=== PATIENT | male | born 1955 | race Caucasian/White ===

== ENCOUNTER 2020-03-29 13:19 | Outpatient (REF) | payer MEDICARE, MEDICAID, SELFPAY | END 2020-03-29 13:20 | disposition home or self-care (01) | LOC: HO.HAP 13:19 | PROVIDERS: Visit Provider Family Medicine | DX: Z46.1 Encounter for fitting and adjustment of hearing aid (principal) | CPT/HCPCS: 92593; 99499; V5266 ==

== ENCOUNTER 2020-04-07 08:10 | Outpatient (REF) | payer MEDICARE, MEDICAID, SELFPAY | END 2020-04-07 08:11 | disposition home or self-care (01) | LOC: HO.HAP 08:10 | PROVIDERS: PCP Family Medicine; Referring Provider Family Medicine; Visit Provider Family Medicine | DX: Z46.1 Encounter for fitting and adjustment of hearing aid (principal) | CPT/HCPCS: V5014 ==

== ENCOUNTER 2020-06-20 08:58 | Outpatient (REF) | payer MEDICARE, MEDICAID, SELFPAY ==
--- NOTE | 2020-06-22 09:55 | MHC.AU.P13 ---
Adult Audiological Evaluation Date of Visit: 06/20/20 Senior Accountant Used: Not Applicable Reason for Appointment: Audiologic re-evaluation to determine possible change in hearing ability. Inderjit notes he needs to use the volume of the hearing aids to reduce the loudness every time he uses the aids. Previous Hearing Test Results: 05/06/2019 [facility] Normal hearing thresholds at 250 and 500 Hz dropping to an asymmetric moderately-severe high frequency sensorineural hearing loss with the left ear being poorer than the right. Speech understanding was 96% for the right ear and 84% for the left. Ear History: Family History of Hearing Loss?: Yes Bothersome Tinnitus/Ringing/Noises in Ears: Both Ears History of occupational noise exposure?: Yes Medical History: Medical History: High Blood Pressure Medical History: No changes in medical history reported Allergies: No changes to medications reported Medication List: Not available for review Hearing Instrument History- Right Ear: Neck Skewer: Nimbic (formerly Physware) Model: GotGame0M Mark ForgedE Serial Number: [id number] Battery Size: 312 Repair Warranty: 05/02/2020 Dispensed By: [facility] Date of Fittin03/24/2015 Hearing Instrument History- Left Ear: Neck Skewer: Nimbic (formerly Physware) Model: GotGame0M BTE Serial Number: [id number] Battery Size: 312 Warranty: 10/03/2020 Dispensed By: [facility] Date of Fittin03/24/2015 Otoscopy: Right Ear: Unremarkable Left Ear: Unremarkable Tympanometry: Right Ear: Not performed at today's visit Left Ear: Not performed at today's visit Hearing Evaluation: Transducer(s) Used: Insert Earphones Bone Conduction Method: Conventional Audiometry Stimuli Used: Pure Tones Right Ear: Description of Hearing: Normal hearing thresholds at 250-750 Hz dropping to a moderately-severe high frequency sensorineural hearing loss Left Ear: Description of Hearing: Normal hearing thresholds at 250 and 500 Hz dropping to a moderately-severe sensorineural high frequency hearing loss. Compared to the right ear, left ear thresholds are 15-30 dB poorer at 750-2000 Hz Speech Recognition Threshold (SRT): Method Used: Monitored Live Voice Stimuli Used: Spondee Words Right Ear: 15 dB HL Left Ear: B HL Word Discrimination: Method: Recorded Lists Word Lists Used: NU-6 Right Ear: 88% at 60 dB HL Left Ear: 92% at 70 dB HL Comparison: Compared to the most recent evaluation: Hearing is stable. Recommendations: Recommendations: Audiological re-evaluation in one year. Recommendations (Other): Hearing aids were cleaned and reprogrammed for Edward's comfort. Diagnosis: Primary Diagnosis: H90.3 Bilateral Sensorineural Hearing Loss Services Performed: Services Performed: Comprehensive Audiological Evaluation (CPT 22198) Signature: Provider: Lillian Kahn, NAMRATA-A
== END 2020-06-20 08:59 | disposition home or self-care (01) ==
LOC: HO.SH 08:58
PROVIDERS: Visit Provider Family Medicine
DX: H90.3 Sensorineural hearing loss, bilateral (principal)
CPT/HCPCS: 92557

== ENCOUNTER 2020-08-08 11:20 | Outpatient (REF) | payer MEDICARE, MEDICAID, SELFPAY | END 2020-08-08 11:21 | disposition home or self-care (01) | LOC: HO.HAP 11:20 | PROVIDERS: Visit Provider Family Medicine | DX: Z46.1 Encounter for fitting and adjustment of hearing aid (principal) | CPT/HCPCS: V5266 ==

== ENCOUNTER 2020-12-22 08:31 | Outpatient (REF) | payer MEDICARE, MEDICAID, SELFPAY | END 2020-12-22 08:32 | disposition home or self-care (01) | LOC: HO.HAP 08:31 | PROVIDERS: Visit Provider Family Medicine | DX: Z46.1 Encounter for fitting and adjustment of hearing aid (principal); H90.3 Sensorineural hearing loss, bilateral | CPT/HCPCS: V5266 ==

== ENCOUNTER 2021-05-23 07:58 | Outpatient (REF) | payer MEDICARE, MEDICAID, SELFPAY ==
--- NOTE | 2021-05-23 09:46 | MHC.AU.HAS ---
Hearing Aid Evaluation Date of Visit: 05/23/21 Core Shaper Used: Not Applicable Historical Information: Description of Hearing: Normal hearing thresholds at 250 and 500 Hz, dropping to an asymmetrical moderately-severe high frequency sensorineural hearing loss with the left ear poorer at 750-2000 Hz Current personal amplification information, if applicable: AIDS RECEIVED IN 2014 REPORTED LOST 05/23/2021. Needs replacements Hearing Aid Prescription: Based on the individual?s shared listening needs, communication environments, dexterity, desire for connectivity, and personal preferences, the following prescription for amplification has been made: Right ear: Bioprocessing Manufacturing Technician: Phonak Model: Popcutseo P 70 13-T Battery Size: 13 Color: Silver [place] Horticultural Farmer: #2 Medium Type of Dome: Open Left ear: Left ear prescription to be same as Right Hearing Aid above: Bioprocessing Manufacturing Technician: Phonak Model: Audeo P 70 13T Battery Size: 13 Color: [place] Horticultural Farmer: #2 Medium Type of Dome: Open Plan of Care: Patient wishes to purchase hearing aids as prescribed Action Taken/Action Needed: Medical Clearance to be requested from PCP/ENT Hearing Instrument Fitting to be scheduled when materials arrive Primary Diagnosis: H90.3 Bilateral Sensorineural Hearing Loss Signature: Provider: Lillian Kahn, CCC-A
--- NOTE | 2021-05-23 09:49 | MHC.AU.MED ---
Medical Clearance for Hearing Instrumentation Date: 05/23/21 Patient Name: Inderjit Downing Date of : 1955 Primary Care Provider: Referring Provider: Douglas Fuentes MD We have seen your patient on 05/23/21 and have determined that they are a candidate for amplification (See accompanying report). Specifically, they would benefit from: Hearing aid use in both ears There is a statute that addresses Medical Evaluation Requirements prior to fitting a patient with a hearing aid. According to [place] statute 265 CMR:6.03(1), (a) General. Except as provided in 265 CMR 6.03(1)(b), a senior analyst programmer shall not sell a hearing aid unless the prospective user has presented to the senior analyst programmer a written statement signed by a licensed physician that states that the patient's hearing loss has been medically evaluated and the patient may be considered a candidate for a hearing aid. The medical evaluation must have taken place within the preceding six months. Please note: Due to the [place] Statute referenced above, we cannot accept a signature other than that of a licensed physician. TRUCK FARMER and PA signatures cannot be accepted. I am in agreement with the above recommendation. There is no medical contraindication for hearing instrumentation. Physician Signature Date Physician Name (Printed)
--- NOTE | 2021-05-25 13:05 | MHC.AU.AHA ---
Adult Audiological Evaluation Date of Visit: 05/23/21 Food Service Manager Used: Not Applicable Reason for Appointment: Audiologic re-evaluation. Inderjit reports he recently lost both hearing aids and need replacements. Previous Hearing Test Results: 06/20/2020 [facility] Normal hearing thresholds at 250 and 500 Hz, dropping to an asymmetric moderately-severe high frequency sensorineural hearing loss with the left ear being poorer than the right by 15-30 dB HL at 750-2000 Hz. Speech understanding was 88% for the right ear at 60 dB HL and 92% for the left ear at 70 dB HL Ear History: History of occupational noise exposure?: Yes Medical History: Medical History: High Blood Pressure Medical History: Since last tested, Inderjit notes he experienced positional vertigo which improved with Vestibular Rehabilitation Medication List: None reported Hearing Instrument History- Right Ear: REPORTED LOST 05/23/2021 Scrip Clerk: Phonak Model: Audeo P 70 13-T Serial Number: [id number] Dispensed By: [facility] Date of Fittin03/24/2015 Hearing Instrument History- Left Ear: REPORTED LOST 05/23/2021 Scrip Clerk: Phonak Model: Audeo P 70 13T Serial Number: [id number] Dispensed By: [facility] Date of Fittin03/24/2015 Otoscopy: Right Ear: Unremarkable Left Ear: Unremarkable Tympanometry: Not performed at today's visit as all previous testing has indicated bilateral normal middle ear function Hearing Evaluation: Transducer(s) Used: Insert Earphones Bone Conduction Method: Conventional Audiometry Stimuli Used: Pure Tones Right Ear: Description of Hearing: Normal hearing thresholds at 250 and 500 Hz, dropping to a moderately-severe high frequency sensorineural hearing loss Left Ear: Description of Hearing: Normal hearing thresholds at 250 and 500 Hz, dropping to a moderately-severe high frequency sensorineural hearing loss. Hearing levels at 750-2000 Hz are 15-30 dB poorer compared to the right ear. Speech Recognition Threshold (SRT): Method Used: Not performed at today's visit. Word Discrimination: Method: Recorded Speech Word Lists Used: NU-6 Right Ear: 100% at 75 dB HL Left Ear: 88% at 75 dB HL Most Comfortable Level (MCL): Right Ear: 75 dB HL Left Ear: 75 dB HL Comparison: Compared to the most recent evaluation: Hearing is stable. Recommendations: Trial with new amplification is recommended. Medical clearance from a physician is required before fitting. Hearing Aid Fitting will be scheduled when all materials arrive. Audiological re-evaluation in one year. Will send a reminder card Diagnosis: Primary Diagnosis: H90.3 Bilateral Sensorineural Hearing Loss Services Performed: Comprehensive Audiological Evaluation (CPT 56313) Signature: Provider: Lillian Kahn, NAMRATA-A
== END 2021-05-23 07:59 | disposition home or self-care (01) ==
LOC: HO.SH 07:58
PROVIDERS: Visit Provider Internal Medicine
DX: Z01.10 Encounter for examination of ears and hearing without abnormal findings (principal); H90.3 Sensorineural hearing loss, bilateral; I10 Essential (primary) hypertension
CPT/HCPCS: 92557; 92591

== ENCOUNTER 2021-07-06 10:29 | Outpatient (REF) | payer MEDICARE, MEDICAID, SELFPAY | END 2021-07-06 10:30 | disposition home or self-care (01) | LOC: HO.HAP 10:29 | PROVIDERS: Visit Provider Internal Medicine | DX: Z46.1 Encounter for fitting and adjustment of hearing aid (principal); H90.3 Sensorineural hearing loss, bilateral | CPT/HCPCS: V5011; V5020; V5160; V5261; V5266 ==

== ENCOUNTER 2021-07-28 09:55 | Outpatient (REF) | payer MEDICARE, MEDICAID, SELFPAY | END 2021-07-28 09:56 | disposition home or self-care (01) | LOC: HO.HAP 09:55 | PROVIDERS: Visit Provider Family Medicine | DX: Z13.89 Encounter for screening for other disorder (principal) ==

== ENCOUNTER 2021-11-29 12:07 | Outpatient (REF) | payer MEDICARE, MEDICAID, SELFPAY | END 2021-11-29 12:08 | disposition home or self-care (01) | LOC: HO.HAP 12:07 | PROVIDERS: Visit Provider Family Medicine | DX: Z46.1 Encounter for fitting and adjustment of hearing aid (principal); H90.3 Sensorineural hearing loss, bilateral | CPT/HCPCS: V5266 ==

== ENCOUNTER 2022-04-18 08:39 | Outpatient (REF) | payer MEDICARE, MEDICAID, SELFPAY | END 2022-04-18 08:40 | disposition home or self-care (01) | LOC: HO.HAP 08:39 | PROVIDERS: Visit Provider Family Medicine | DX: Z46.1 Encounter for fitting and adjustment of hearing aid (principal); H90.3 Sensorineural hearing loss, bilateral | CPT/HCPCS: V5266 ==

== ENCOUNTER 2022-04-23 14:02 | Outpatient (REF) | payer MEDICARE, MEDICAID, SELFPAY ==
--- NOTE | 2022-04-23 14:48 | MHC.AU.HFU ---
Hearing Instrument Follow-Up- Binaural Date of Visit: 04/23/22 Right Ear: Phonak Audeo P70-13T, #[id number], [place] Repair Warranty: 09/26/2024 Loss and Damage Warranty: 09/26/2024 Service Plan: 07/06/2022 Battery Size: 13 Stock Dealer: 2M Type of Dome: Small Vented Dome Type of Wax Guard: CeruShield Dispensed By: [facility] Date of Fittin07/06/2021 Left Ear: Phonak Audeo P70-13T, #[id number], [place] Repair Warranty: 09/26/2024 Loss and Damage Warranty: 09/26/2024 Service Plan: 07/06/2022 Battery Size: 13 Color: [place] Stock Dealer: 2M Type of Dome:Small Vented Dome Type of Wax Guard: CeruShield Dispensed By: [facility] Date of Fittin07/06/2021 Follow-Up Summary: Patient previously called to inquire about the battery life of his hearing aids. They have been consistently lasting at least 7 days. Recently, they have suddenly started to last only 5 or less. He has not had any changes in amount of phone streaming or overall daily usage. It was suggested that they be sent for repair. Patient arrived today to drop the hearing aids off. He was provided with a pair of loaner instruments (Phonak Audeo P70-13T [id number], [id number]). The loaner instruments were paired to his phone and to the elie. Recommendations: Patient will be contacted when materials have arrived. When the hearing aids return, he will need an appointment to re-pair them to his phone and elie, as well as return the loaners. Diagnosis Code(s): Primary Diagnosis: H90.3 Bilateral Sensorineural Hearing Loss Signature: Viridiana Ruth, [facility]
== END 2022-04-23 14:03 | disposition home or self-care (01) ==
LOC: HO.HAP 14:02
PROVIDERS: Visit Provider Family Medicine
DX: Z13.89 Encounter for screening for other disorder (principal)

== ENCOUNTER 2022-05-04 09:28 | Outpatient (REF) | payer MEDICARE, MEDICAID, SELFPAY ==
--- NOTE | 2022-05-04 09:52 | MHC.AU.HA3 ---
Hearing Instrument Follow-Up- Binaural Date of Visit: 05/04/22 Right Ear: Samuel, , Color, Serial Number: Leyla Rivas P70-13T SN: [id number] Color: [place] Last Greaser Repair Warranty: 09/26/2024 Last Greaser Loss and Damage Warranty: 09/26/2024 [facility] Plan: 07/06/2022 Battery Size: 13 Military Science Teacher/Slim Tube: 2M Earmold/Dome/CShell/SlimTip:Small Vented Dome with retention tail Type of Wax Guard: CeruShield Dispensed By: [facility] Date of Fittin07/06/2021 Left Ear: Samuel, , Color, Serial Number: Leyla Rivas P70-13T SN: [id number] Color: [place] Last Greaser Repair Warranty: 09/26/2024 Last Greaser Loss and Damage Warranty: 09/26/2024 [facility] Service Plan: 07/06/2022 Battery Size: 13 Military Science Teacher/Slim Tube: 2M Earmold/Dome/CShell/SlimTip: Small Vented Dome with retention tail Type of Wax Guard: CeruShield Dispensed By: [facility] Date of Fittin07/06/2021 Follow-Up Summary: Inderjit picked up repaired hearing aids and returned loaners. He reported that the batteries in the loaners also only lasted about 4 days. Advised waiting 2-3 minutes after removing sticker from the battery before putting it in the hearing aids. Also possible that Inderjit has a bad batch of batteries. Gave a couple new batteries from different package to try. Recommendations: Hearing instrument maintenance in 6 months, or sooner if needed. Please contact our clinic with any questions or concerns. Patient will call if problems persist. Diagnosis Code(s): Primary Diagnosis: H90.3 Bilateral Sensorineural Hearing Loss Signature: Provider: Viridiana Sparks, [facility]
== END 2022-05-04 09:29 | disposition home or self-care (01) ==
LOC: HO.HAP 09:28
PROVIDERS: Visit Provider Family Medicine
DX: Z13.89 Encounter for screening for other disorder (principal)

== ENCOUNTER 2022-08-10 08:55 | Outpatient (REF) | payer MEDICARE, MEDICAID, SELFPAY ==
--- NOTE | 2022-08-10 13:25 | MHC.AU.HFU ---
Hearing Instrument Follow-Up- Binaural Date of Visit: 08/10/22 Right Ear: Transfer Iron Operator: Phonak Audeo P70-13T SN: [id number] Color: [place] Repair Warranty: 09/26/2024 Loss and Damage Warranty: 09/26/2024 Service Plan: 09/26/2024 Battery Size: 13 Color: [place] Broommaker: 2M Type of Dome: Small Vented Dome with retention tail Type of Wax Guard: CeruShield Dispensed By: [facility] Date of Fittin07/06/2021 Left Ear: Transfer Iron Operator: Phonak Audeo P70-13T SN: [id number] Color: [place] Repair Warranty: 09/26/2024 Loss and Damage Warranty: 09/26/2024 Service Plan: 09/26/2024 Battery Size: 13 Color: [place] Broommaker: 2M Type of Dome: Small Vented Dome with retention tail Type of Wax Guard: CeruShield Dispensed By: [facility] Date of Fittin07/06/2021 Follow-Up Summary: Patient was seen for audiologic re-evaluation. Hearing Aid maintenance performed, cleaned microphones, receivers, contacts, and changed wax guards. Both aids amplifying clearly. Thresholds are stable so no programming changes were made today. Patient has been having trouble getting the aids to connect to the [employer] elie. Tried to go through the process of unpairing and re-pairing aids to phone and follow step provided by [employer], but it did not work. Provided patient with the [employer] phone number to get to [employer] Connectivity Support to help patient through the process. Recommendations: Hearing instrument follow-up or maintenance as needed. Please contact our clinic with any questions or concerns. Diagnosis Code(s):Primary Diagnosis: H90.3 Bilateral Sensorineural Hearing Loss Signature:Provider: Viridiana Kahn, [facility]
--- NOTE | 2022-08-10 13:28 | MHC.AU.HFU ---
Hearing Instrument Follow-Up- Binaural Date of Visit: 08/10/22 Right Ear: Director Of Quality: Phonak Audeo P70-13T SN: [id number] Color: [place] Repair Warranty: 09/26/2024 Loss and Damage Warranty: 09/26/2024 Service Plan: 07/06/2022 Battery Size: 13 Color: [place] Shiatsu Therapist: 2M Type of Dome: Small Vented Dome Type of Wax Guard: CeruShield Dispensed By: [facility] Date of Fittin07/06/2021 Left Ear: Director Of Quality: Phonak Audeo P70-13T SN: [id number] Color: [place] Repair Warranty: 09/26/2024 Loss and Damage Warranty: 09/26/2024 Service Plan: 07/06/2022 Battery Size: 13 Color: [place] Shiatsu Therapist: 2M Type of Dome: Small Vented Type of Wax Guard: CeruShield Dispensed By: [facility] Date of Fittin07/06/2021 Follow-Up Summary: Patient was seen for audiologic re-evaluation. Hearing Aid maintenance performed, cleaned microphones, receivers, contacts, and changed wax guards. Both aids amplifying clearly. Thresholds are stable so no programming changes were made today. Patient has been having trouble getting the aids to connect to the [employer] elie. Tried to go through the process of unpairing and re-pairing aids to phone and follow step provided by [employer], but it did not work. Provided patient with the [employer] phone number to get to [employer] Connectivity Support to help patient through the process. Recommendations: Hearing instrument follow-up or maintenance as needed. Please contact our clinic with any questions or concerns Diagnosis Code(s):Primary Diagnosis: H90.3 Bilateral Sensorineural Hearing Loss Services Performed:SCHULTZ Maintenance, Minor Repair (Quantity): 2 Signature:Provider: Viridiana Kahn, [facility]
== END 2022-08-10 08:56 | disposition home or self-care (01) ==
LOC: HO.SH 08:55
PROVIDERS: Visit Provider Nurse Practitioner Family
DX: Z01.118 Encounter for examination of ears and hearing with other abnormal findings (principal); H90.3 Sensorineural hearing loss, bilateral
CPT/HCPCS: 92557; 92567; 92593

== ENCOUNTER 2022-10-10 14:25 | Outpatient (REF) | payer MEDICARE, MEDICAID, SELFPAY | END 2022-10-10 14:26 | disposition home or self-care (01) | LOC: HO.HAP 14:25 | PROVIDERS: Visit Provider Family Medicine | DX: Z46.1 Encounter for fitting and adjustment of hearing aid (principal); H90.3 Sensorineural hearing loss, bilateral | CPT/HCPCS: V5266 ==

== ENCOUNTER 2024-01-23 15:42 | Outpatient (REF) | payer SELFPAY | END 2024-01-23 15:43 | disposition home or self-care (01) | LOC: HO.HAP 15:42 | PROVIDERS: Visit Provider Family Medicine | DX: Z46.1 Encounter for fitting and adjustment of hearing aid (principal); H90.3 Sensorineural hearing loss, bilateral | CPT/HCPCS: 92593; V5267 ==

== ENCOUNTER 2024-09-30 09:19 | Outpatient (REF) | payer SELFPAY | END 2024-09-30 09:20 | disposition home or self-care (01) | LOC: HO.HAP 09:19 | PROVIDERS: Visit Provider Family Medicine | DX: Z13.89 Encounter for screening for other disorder (principal) ==

== ENCOUNTER 2024-10-02 08:03 | Outpatient (REF) | payer SELFPAY | END 2024-10-02 08:04 | disposition home or self-care (01) | LOC: HO.SH 08:03 | PROVIDERS: Visit Provider Family Medicine | DX: Z01.118 Encounter for examination of ears and hearing with other abnormal findings (principal); Z46.1 Encounter for fitting and adjustment of hearing aid | CPT/HCPCS: V5299 ==

== ENCOUNTER 2025-03-20 12:24 | Emergency (ER) | payer MEDICARE, SELFPAY ==
--- NOTE | ~2025-03-20 | CT_ITS ---
CLINICAL HISTORY: head strike, injury CT head without contrast Comparison: None Findings: No intracranial mass, midline shift, hydrocephalus, or acute hemorrhage. No CT evidence of acute ischemia. Visualized paranasal sinuses and mastoid air cells reveal mild mucosal thickening involving the floors of left worse than right frontal sinuses.. Orbits unremarkable. No skull fracture Impression: 1. No acute intracranial abnormalities. This document has been electronically signed by: Charbel Palmer MD on 03/20/2025 14:01:06
--- NOTE | ~2025-03-20 | CT_ITS ---
CLINICAL HISTORY: head strike, injury CT cervical spine without contrast Comparison: None Findings: Normal limited view of the intracranial contents. Soft tissues of the neck are normal. Lung apices are normal. Normal vertebral body alignment. Sequela of ACDF C4-C6 with anterior fusion plate and incorporated intervertebral grafts are present. Hardware and vertebral alignment are good, with no CT evidence of hardware failure. No fractures or dislocations. Degenerative disc changes are present, most significant at C3-4 level.. Impression: 1. No cervical vertebral fracture or traumatic malalignment. This document has been electronically signed by: Charbel Palmer MD on 03/20/2025 14:04:36
[2025-03-20 12:29] VITALS: BP 162/88; PULSE 72; RESP 18; TEMP 36.1; O2SAT 97; BMI 28.0
--- NOTE | 2025-03-20 12:47 | ED_ITS ---
HPI - General Adult General Chief complaint: Head Injury Stated complaint: Head Lac Injury Time Seen by Provider: 03/20/25 12:47 Source: patient and family (patient's ) Mode of arrival: ambulatory Limitations: no limitations History of Present Illness ED Provider: Richa Crawford PA-C HPI narrative: Patient is a 69 year old assigned male at with a history of BPH, CKD stage 2, hearing loss with bilateral hearing aids, rosacea, and cervical spine fusion presenting to the emergency department today with a left scalp laceration. Patient states that he was on the ground, attempting to adjust a ladder, when it got away from him and hit him in the back of the head. Patient denies any loss of consciousness. Patient denies any anti-coagulation use. Patient denies any other complaints at this time. Related Data Previous Rx's ?Medication ?Instructions ?Recorded amoxicillin 875 mg-potassium 1 tab PO BID 5 days #10 t abs 03/20/25 clavulanate 125 mg tablet Allergies Allergy/AdvReac Type Severity Reaction Status Date / Time levofloxacin (From Levaquin) Allergy Intermediate Angioedema Verified 03/20/25 12:30 Review of Systems 2 Constitutional: Constitutional: Reports as per HPI Eyes: Eyes: Reports as per HPI ENT: Reports as per HPI Cardiovascular: Cardiovascular: Reports as per HPI Respiratory: Respiratory: Reports as per HPI Gastrointestinal: Gastrointestinal: Reports as per HPI Genitourinary: Genitourinary: Reports as per HPI Musculoskeletal: Musculoskeletal: Reports as per HPI Integumentary/Breasts: Skin/Breast: Reports as per HPI Neurologic: Reports as per HPI Psychiatric: Psychiatric: Reports as per HPI Endocrine: Endocrine: Reports as per HPI Hematologic/Lymphatic: Hematologic/Lymphatic: Reports as per HPI Allergic/Immunologic: Allergic/Immunologic: Reports as per HPI PMFSH Past Medical History Attestation statement: The following information was validated with the patient. (all information validated with the patient's ) Source: old records reviewed, obtained from family (patient's provided additional history and confirmed the history provided by the patient. ) and nursing notes reviewed Social History Social History Smoked in Last 30 Days: No Use of substances other than those prescribed or required for medical reasons: No Advance Directives: Yes Advance Directives Information Provided: No Advance Directives on File: No Do you have a plan to hurt others: No Plan Physical Exam ED Vital Signs: Vital Signs - 24 hr 03/20/25 12:29 03/20/25 13:38 Temperature 97.0 F 98.4 F Pulse Rate 72 58 Respiratory Rate 18 16 Blood Pressure 162/88 H 125/65 Pulse Oximetry 97 97 Oxygen Delivery Method Room Air Room Air BMI result Body Mass Index 28.0 Const General: cooperative, no acute distress, alert and awake Nutritional Appearance: well nourished Orientation/consciousness: patient oriented x3 HENMT Other: Ears: hearing grossly normal bilaterally and external ears normal General nose exam: Normal external nose present, no nasal discharge noted and no epistaxis Face and sinus: Yes normal facial exam, No abrasion and No laceration Mouth: Normal oral and palatal mucosa present, no drooling and no muffled voice Eyes General: appearance normal, both eyes and all related structures Periorbital: periorbital findings normal Eyelids: Yes eyelids normal Conjunctivae: conjunctivae normal Pupils: Equal, round and reactive pupils present EOM: EOMs intact bilaterally Neck Neck: Yes normal visual inspection and Yes full ROM Resp Effort & Inspection: normal respiratory effort and able to speak in complete sentences Neuro General: patient oriented x3, moves all extremities and CN's II-XI intact bilaterally Cranial nerves: Yes Equal, round and reactive pupils present Cognition (Neuro): normal cognition Extrem General: Yes normal to inspection, Yes full ROM and Yes capillary refill normal Psych Appearance: grossly normal Mental Status: mental status grossly normal Affect: normal affect Attitude: cooperative Thought process: Normal thought process present Thought content: Normal thought content present Insight: Good insight present (Psych) Medications Administered Discontinued Medications Generic Name Dose Route Start Last Admin Trade Name Freq PRN Reason Stop Dose Admin Diphtheria/Tetanus/Acell Pertussis 0.5 ml 03/20/25 12:48 03/20/25 13:42 Diphth,Pertus(Acell),Tet Adult 0.5 Ml Syringe IM 03/20/25 12:49 0.5 ml .ONCE ONE Administration Procedures Laceration Left posterior scalp laceration: Site: scalp Side (If applicable): left Size (cm): 3 Description: linear Depth: simple, single layer Pre-repair: wound explored, irrigated extensively and deep structures intact Skin layer closed with: ruchi Number of closing items:: 3 Technique: ruchi Medical Decision Making Medical Decision Making MDM Narrative: Patient is a 69 year old assigned male at with a history of BPH, CKD stage 2, hearing loss with bilateral hearing aids, rosacea, and cervical spine fusion presenting to the emergency department today with a left scalp laceration. Patient's physical exam was as noted in the physical exam portion of this note. Patient's CT head and c-spine showed no acute process. I explained my physical exam findings as well as all test results to the patient and the patient's . I answered all questions asked by the patient and the patient's . Patient's wound was well approximately with 3 ruchi, without incident. Patient was brought up to date on his tetanus status. I stressed the importance of the patient taking his medication as directed (either prescribed or as the over the counter packaging recommends). I stressed the importance of the patient following up with his primary care provider. I stressed the importance of the patient returning to the emergency department immediately if he were to develop any dizziness, shortness of breath, difficulty breathing, chest pain, blurry vision, loss of vision, nausea, vomiting, abdominal pain, fever, chills, back pain, or any other complaints. Patient and the patient's verbalized agreement and understanding with this treatment plan and discharge. Differential Diagnosis Differential Diagnoses: The differential diagnosis associated with the presentation includes Scalp laceration Head trauma Intracranial hemorrhage Cervical strain Cervical sprain Admission/Observation Consideration of admission/observation: Escalation of care including admission/observation considered Patient would have been admitted to the hospital had his work up had any findings where hospital admission was appropriate and his clinical presentation warranted hospital admission. Independent Interpretation I performed an independent interpretation of an: CT Scan Interpretation: My interpretation is in agreement with the radiologist's impression of these imaging studies. L Report Number: [id number]: Total DLP = 0.00 mGy-cm Reason for Exam: head strike, injury CLINICAL HISTORY: head strike, injury CT cervical spine without contrast Comparison: None Findings: Normal limited view of the intracranial contents. Soft tissues of the neck are normal. Lung apices are normal. Normal vertebral body alignment. Sequela of ACDF C4-C6 with anterior fusion plate and incorporated intervertebral grafts are present. Hardware and vertebral alignment are good, with no CT evidence of hardware failure. No fractures or dislocations. Degenerative disc changes are present, most significant at C3-4 level.. Impression: 1. No cervical vertebral fracture or traumatic malalignment. This document has been electronically signed by: Charbel Palmer MD on 03/20/2025 14:04:36 Dictated By: Charbel Palmer MD Signed By: Electronically signed by Charbel Palmer MD 03/20/25 1406 Reason for Exam: head strike, injury CLINICAL HISTORY: head strike, injury CT head without contrast Comparison: None Findings: No intracranial mass, midline shift, hydrocephalus, or acute hemorrhage. No CT evidence of acute ischemia. Visualized paranasal sinuses and mastoid air cells reveal mild mucosal thickening involving the floors of left worse than right frontal sinuses.. Orbits unremarkable. No skull fracture Impression: 1. No acute intracranial abnormalities. This document has been electronically signed by: Charbel Palmer MD on 03/20/2025 14:01:06 Dictated By: Charbel Palmer MD Signed By: Electronically signed by Charbel Palmer MD 03/20/25 2274 Radiology Impression Discussion of test interpretation with radiology: I have reviewed the radiologist's reading. Independent Historian Clinical information obtained from an independent historian. History obtained from or confirmed by: Spouse (patient's provided additional history and confirmed the history provided by the patient. ) External Record Review External record reviewed: Primary care record (reviewed last primary care note from [facility] on 09/30/2023) Prescription Management I considered prescription management with: Antibiotic (patient prescribed a prophylactic antibiotic given the mechanism of injury) Discharge Plan Discharge Clinical Impression: Laceration of scalp Patient Disposition: Home, Self-Care Instructions: Laceration (DC), Staple Care (ED) Additional Instructions: Your CT of the head and c-spine showed no evidence of an EMERGENT process. You got 3 ruchi placed in your scalp laceration. Have these removed in 7-10 days. Do NOT soak the affected area. Avoid all public bodies of water including pools, doss, lakes, streams, etc. Take your prophylactic antibiotic as directed. IF you are prescribed home medications and/or you are taking over the counter medications at home - it is very important you continue to do so as prescribed / directed unless told otherwise. Follow up with your primary care provider. Return to the emergency department immediately if your symptoms worsen or if you develop any numbness, tingling, dizziness, shortness of breath, difficulty breathing, chest pain, blurry vision, loss of vision, nausea, vomiting, abdominal pain, fever, chills, back pain, or any other complaints. Please see the information below about our Patient Portal. If you are not yet enrolled in the [facility] Patient Portal, you will receive an enrollment email invitation following your visit to any [facility] setting. You may also self-enroll in the Patient Portal by visiting our website: [email or web address] The following information is required to access the Patient Portal: - Your [facility] Medical Record Number - Your personal home email address (must match what is in your electronic medical record, Registration staff can assist with this) - Name - Date of Capabilities of the Patient Portal: - Message some providers - View upcoming appointments - Access your health summary, medical history, and visit history - View current conditions and allergies - View procedure and lab results - View your medications, including guidelines, side effects, and precautions - Complete pre-appointment questionnaires requested by your provider - Ready summary reports of your office visits and procedures To access the Patient Portal Mobile Ne, follow these directions: - Search [employer] in the Ne Store or Get [employer] Store - Download the Ne - Search for [facility] - Enter your login/password Prescriptions: New amoxicillin-pot clavulanate 875-125 mg tablet 1 tab PO BID 5 Days Qty: 10 0RF Referrals: Betito Aguayo MD [Primary Care Provider, Internal Medicine] Interventions: ED Discharge Assessment Last Done: 03/20/25 14:50 Print Language: Mauritanian
--- OUTSIDE RECORDS SUMMARY | 2025-03-20 13:08 | XMS_ITS | Clinical Summary ---
Author Organization [facility] Address [facility] Andre Phillipe [address] [address] Phone Care Team Providers Care Industry Analyst Name Role Phone Betito Aguayo MD Primary Care Provider Allergies Active Allergy Reactions Criticality Noted Date Comments Levofloxacin Swelling High 10/02/2018 Medications erythromycin (ROMYCIN) ophthalmic ointmentIndicat ions:Hordeolum externum of left upper eyelid Place 0.5 inches into the left eye nightly at bedtime. 3.5 g 5 Active tobramycin-dexA METHasone (TOBRADEX) ophthalmic suspension INSTILL 1 DROP IN RIGHT EYE THREE TIMES A DAY X 1 WEEK THEN DAILY X 1 WEEK 5 Active hydrocortisone 2.5 % ointment APPLY TO AFFECTED AREAS ON FACE 1-2 TIMES DAILY FOR 1 WEEK, BREAK 1 WEEK, REPEAT NEEDED ITCHING 5 Active ketoconazole 2 % cream APPLY TO THE AFFECTED FLAKY AREAS ON THE FACE TWICE DAILY UNTIL RESOLVED THEN WEEKLY FOR MAINTENANCE 5 Active ketoconazole (NIZORAL) 2 % shampoo USE DAILY A FACE WASH 5 Active Active Problems Problem Noted Date Diagnosed Date Mixed hyperlipidemia 11/07/2023 Assessment & Plan (11/07/2023 7:07 PM EDT): Patient reports that his cholesterol numbers have been improving. Not on a statin at baseline. Defer to outpatient management. Would recommend low-fat, lactose-free diet when diet is advanced. Osteoarthritis 11/07/2023 Overview (11/07/2023): multiple knee surgeries bilateral Assessment & Plan (11/07/2023 7:07 PM EDT): All available for mild pain if needed. No acute osteoarthritis issues. Partial intestinal obstruction, unspecified caus e 11/07/2023 Assessment & Plan (11/07/2023 7:06 PM EDT): Patient presenting with nausea, vomiting, abdominal pain and poor oral intake, with imaging suggestive of a partial bowel obstruction. Case was discussed by Dr. Baptiste with the ED provider. Clinically relatively comfortable. Mild abdominal pain. Nausea improved. Conservative management expected. -Normal surgery consult in the morning -Diet advanced to clear liquids as tolerated -IV fluid support overnight with LR at 100 cc/h -Analgesia available with Tylenol if needed. Doses of Toradol scheduled tonight. At this point I feel that opioids are not needed for pain and would likely worsen his bowel obstruction. Holding off on opioid orders for now. -Emetic available if needed -Encourage mobility -SCDs for DVT prophylaxis. I have held off on Lovenox tonight while I am giving scheduled Toradol. Encounters Date Type Department Care Team Description 03/11/2025 Telephone [facility] [address] [place] [id number] Betito Aguayo MD Referral 02/25/2025 3:30 PM EDT Office Visit [facility] [address] [place] [address] [place] [id number] Jefferson Bermudez MD Primary osteoarthritis of both knees (Primary Dx) 02/23/2025 8:30 AM EDT - 02/23/2025 11:59 PM EDT Hospital Encounter [facility], X-Ray - [address] [place] [address] Jefferson Bermudez MD Discharge Disposition: Home or Self Care 02/15/2025 Orders Only [facility] [address] [place] [id number] Verona Wilder MA Primary osteoarthritis of both knees (Primary Dx) 01/05/2025 Telephone [facility] [address] [place] [address] Kylie Hammonds, MARY Results (Virtual clinical support: MRI results) 01/02/2025 3:48 PM EDT - 01/02/2025 11:59 PM EDT Hospital Encounter [address] [address] Betito Aguayo MD Discharge Disposition: Home or Self Care 12/07/2024 Procedure Pass [address] [id number] from Last 3 Months Immunizations Immunization Administration Dates Next Due DT 10/16/2000 Influenza High-Dose Quadrivalent Preservative Fr ee IM 02/14/2021 Influenza High-Dose Trivalent Preservative Free IM 02/11/2019 Influenza Quadrivalent Adjuvanted Preservative F ree IM 02/17/2023,03/09/2022 Influenza Quadrivalent MDCK Preservative Free IM 03/09/2020 Influenza Quadrivalent Preservative Free IM 10/2017,06/13/2017 Influenza Trivalent Adjuvanted Preservative free IM 03/13/2024 Influenza, Unspecified Formulation 06/06/2017 Pneumococcal conjugate PCV20 06/06/2022 Td (adult),2 Lf Tetanus Toxoid, PF, Adsorbed 06/2021 Zoster live 04/28/2014 Zoster recombinant 04/08/2023,01/22/2023 Family History Medical History Relation Comments Heart disease Father Lung disease Mother Relation Status Comments Father Mother Social History Tobacco Use Types Packs/Day Years Used Date Smoking Tobacco: Former Cigarettes Q uit: 2018 Smokeless Tobacco: Never Tobacco Cessation:Counseling Given: Not Answered Alcohol Use Standard Drinks/Week Comments Yes 0 (1 standard drink = 0.6 oz pure alcohol) oc beer or spirit on special occasions Child or Family Care Answer Date Record ed Do you have problems with on e of the following making it difficult for you to work, study, or receive health care? No 06/23/2024 Education Answer Date Recorded Are you interested in more education? Not on bj e 09/21/2022 Are you concerned about learning? Not on file 09/21/2022 No 09/21/2022 No 09/21/2022 Food Answer Date Recorded Within the past 6 months we worried whether our food would run out before we got money to buy more. Never True 06/23/2024 Within the past 6 months the food we bought just didn't last and we didn't have enough money to get more. Never True Residential Stability Answer Date Recor ded What is your housing situation today? I have ronan sing 06/23/2024 How many times have you move d in the past 12 months? Zero (I did not move) 06/23/2024 Paying for Meds Answer Date Recorded Do you have trouble paying for medicines? No 06/23/2024 Paying Utility Bills Answer Date Record ed Do you have trouble paying your heating or elect ricity bill? No 06/23/2024 Transportation Answer Date Recorded Has the lack of transportati on kept you from medical appointments or from getting medications? No 06/23/2024 Digital Access Answer Date Recorded No 06/23/2024 Yes 06/23/2024 Do you have reliable internet access at home? Ye s 06/23/2024 Do you have a device (e.g., phone, tablet, computer) with a working camera? Yes 06/23/2024 Intimate Partner Violence Answer Date R ecorded Are you denied basic needs s uch as food, clothing, or medical care? No 06/23/2024 In the past 12 months have y ou been in a relationship with a person who hurts, threatens, or tries to control you? No 06/23/2024 Are you denied basic needs s uch as food, clothing, or medical care? No 06/23/2024 In the past 12 months have y ou been in a relationship with a person who hurts, threatens, or tries to control you? 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 Not on file Not on file Last Filed Vital Signs Vital Sign Reading Time Taken Comments Blood Pressure 118/62 12/07/2024 9:42 AM EDT Pulse 59 12/07/2024 9:42 AM EDT Temperature 36.3 C (97.3 F) 12/07/2024 9:42 AM EDT Respiratory Rate 16 11/07/2023 11:28 PM EDT Oxygen Saturation 95% 12/07/2024 9:42 AM EDT Inhaled Oxygen Concentration - - Weight 93 kg (205 lb) 12/30/2024 11:40 AM EDT Height 188 cm (6' 2 ) 12/30/2024 11:40 AM EDT Body Mass Index 26.32 12/30/2024 11:40 AM EDT Plan of Treatment Upcoming Encounters Date Type Department Care Team (Late st Contact Info) Description 03/29/2025 11:00 AM EST Telemedicine - audio only [facility] [address] [place] [address] [place] [phone] Jefferson Bermudez MD [address] [place] [address] [facility] [place] [address] [email or web address] 12/13/2025 8:40 AM EDT Office Visit [facility] [address] [facility] [address] [place] [address] Betito Aguayo MD [address] [facility] [address] [place] [id number] Health Maintenance Due Date Last Done Comments SMOKING Hx and SMOKELESS TOBACCO SCREENING 1966 HEPATITIS C SCREENING 11/04/1971 COLOGUARD 1998 COLONOSCOPY 1998 COLORECTAL CANCER SCREENING 1998 FIT TEST 1998 FOBT 1998 SIGMOIDOSCOPY 1998 VIRTUAL COLONOSCOPY 1998 INFLUENZA VACCINE (#1) 2024 , 02/17/2023, 03/09/2022, Additional history exists COVID-19 VACCINE ( season) 2025 11/29/2020, 11/08/2020 DEPRESSION SCREENING 12/07/2025 12/07/2024 RSV VACCINE (1 - 1-dose 75+ series) 2028 LIPID PANEL 12/07/2029 12/07/2024 Adult Td,Tdap Booster 09/26/2031 09/25/2021 PNEUMOCOCCAL VACCINES (50+ years) Completed 06/06/2022 ZOSTER VACCINES Completed 04/08/2023, 12/26, 04/28/2014 ABDOMINAL AORTIC ANEURYSM (AAA) SCREENING Completed 11/07/2023 HEPATITIS A VACCINES Aged Out No long er eligible based on patient's age to complete this topic HIB VACCINES Aged Out No longer eligi ble based on patient's age to complete this topic MENINGOCOCCAL VACCINES (ACWY) Aged Out No longer eligible based on patient's age to complete this topic MENINGOCOCCAL VACCINES (B) Aged Out N o longer eligible based on patient's age to complete this topic Medical Devices Not on file Procedures Procedure Name Priority Date/Time Associated Diagnosis Comments XR KNEE 3 VIEW (BILATERAL) Routine 02/23/2025 8:56 AM EDT Primary osteoarthritis of both knees MRI CERVICAL SPINE (NEURO) FOCUS WITHOUT CONTRAST Routine 01/02/2025 4:47 PM EDT Cervical radiculopathy LIPID PANEL Routine 12/07/2024 11:01 AM EDT Mixed hyperlipidemia CT ABDOMEN/PELVIS WITH CONTRAST Routine 11/07/2023 3:17 PM EDT from Last 3 Months or Most Recently Relevant to Health Maintenance Results * XR KNEE 3 VIEW (BILATERAL) (02/23/2025 8:56 AM EDT) Anatomical Region Laterality Modality Knee Bilateral, Knee Right, Knee Left Computed Radiography 02/23/2025 1:32 PM EDT Impressions 02/23/2025 1:33 PM EDT Bilateral knee osteoarthritis. There is at least mild medial compartment space narrowing bilaterally, slightly worse on the left and mild spurring in all compartments bilaterally. No evidence of acute, displaced fracture, dislocation, or significant joint effusion. Mild peripheral vascular calcification. Narrative 02/23/2025 1:33 PM EDT XR KNEE 3 VIEW (BILATERAL) Referring clinician's provided indication for this examination in [facility]: Osteoarthritis COMPARISON: XR KNEE 4 OR MORE VIEWS (RIGHT) Procedure Note Matt Bar MD - 02/23/2025 XR KNEE 3 VIEW (BILATERAL) Referring clinician's provided indication for this examination in Epic:Osteoarthritis COMPARISON: XR KNEE 4 OR MORE VIEWS (RIGHT) IMPRESSION: Bilateral knee osteoarthritis. There is at least mild medial compartmentspace narrowing bilaterally, slightly worse on the left and mild spurringin all compartments bilaterally. No evidence of acute, displaced fracture,dislocation, or significant joint effusion. Mild peripheral vascularcalcification. Jefferson Bermudez MD IMG XR LOWER EXTREMITY Final Result * MRI CERVICAL SPINE (NEURO) FOCUS WITHOUT CONTRAST (01/02/2025 4:47 PM EDT) Anatomical Region Laterality Modality C-spine Magnetic Resonan ce 01/05/2025 12:1 2 PM EDT Impressions 01/05/2025 12:23 PM EDT Status post anterior cervical fusion from C4 to C6. At C3/4 there is endplate marrow edema, disc ridge complex and superimposed central disc extrusion which in conjunction with facet and uncovertebral arthrosis results in moderate spinal canal narrowing, bilateral foraminal narrowing and ventral cord compression. No cord edema. Narrative 01/05/2025 12:23 PM EDT MRI CERVICAL SPINE (NEURO) FOCUS WITHOUT CONTRAST Referring clinician's provided indication for this examination in [facility]: * Cervical radiculopathy, prior C-spine surgery; recurrent primarily right arm pain and numbness after C4-5 fusion May 2022 TECHNIQUE: MRI CERVICAL SPINE (NEURO) FOCUS WITHOUT CONTRAST Multi-sequence, multi-planar MRI of the cervical spine was performed without intravenous contrast. COMPARISON: None are available at the time of this dictation. FINDINGS: CERVICAL SPINE: Alignment and Vertebrae: Trace retrolisthesis of C3 on C4. Otherwise normal alignment. No compression fracture. Prior anterior fusion from C4 to C6. Marrow: No bone marrow replacing lesion. Discs and Endplates: Multilevel loss of the normal disc signal and disc height. Edema within the C3 and C4 vertebral bodies. Spinal Cord: No spinal cord signal abnormality. There is mild compression of the ventral cord at C3/4. Soft Tissue: Normal. No prevertebral edema. Findings by level: C2-C3: Right greater than left uncovertebral and left greater than right facet arthrosis. No spinal canal narrowing and mild bilateral foraminal stenosis. C3-C4: Disc ridge complex with superimposed central disc extrusion. Bilateral uncovertebral and facet arthrosis. Moderate spinal canal and bilateral foraminal narrowing. C4-C5: Posterior osteophyte, uncovertebral and facet arthrosis. No spinal or foraminal stenosis. C5-C6: Posterior osteophyte, uncovertebral and facet arthrosis. No spinal or foraminal stenosis. C6-C7: Disc ridge complex eccentric to the right, bilateral uncovertebral and facet arthrosis. No spinal canal and mild right foraminal stenosis. C7-T1: Uncovertebral and facet arthrosis. No spinal or foraminal stenosis. Procedure Note Flora Eastman MD - 01/05/2025 MRI CERVICAL SPINE (NEURO) FOCUS WITHOUT CONTRAST Referring clinician's provided indication for this examination in Epic: *Cervical radiculopathy, prior C-spine surgery; recurrent primarily rightarm pain and numbness after C4-5 fusion May 2022 TECHNIQUE: MRI CERVICAL SPINE (NEURO) FOCUS WITHOUT CONTRAST Multi-sequence, multi-planar MRI of the cervical spine was performedwithout intravenous contrast. COMPARISON: None are available at the time of this dictation. FINDINGS: CERVICAL SPINE: Alignment and Vertebrae: Trace retrolisthesis of C3 on C4. Otherwisenormal alignment. No compression fracture. Prior anterior fusion from C4to C6. Marrow: No bone marrow replacing lesion. Discs and Endplates: Multilevel loss of the normal disc signal and discheight. Edema within the C3 and C4 vertebral bodies. Spinal Cord: No spinal cord signal abnormality. There is mild compressionof the ventral cord at C3/4. Soft Tissue: Normal. No prevertebral edema. Findings by level: C2-C3: Right greater than left uncovertebral and left greater than rightfacet arthrosis. No spinal canal narrowing and mild bilateral foraminalstenosis. C3-C4: Disc ridge complex with superimposed central disc extrusion.Bilateral uncovertebral and facet arthrosis. Moderate spinal canal andbilateral foraminal narrowing. C4-C5: Posterior osteophyte, uncovertebral and facet arthrosis. No spinalor foraminal stenosis. C5-C6: Posterior osteophyte, uncovertebral and facet arthrosis. No spinalor foraminal stenosis. C6-C7: Disc ridge complex eccentric to the right, bilateral uncovertebraland facet arthrosis. No spinal canal and mild right foraminal stenosis. C7-T1: Uncovertebral and facet arthrosis. No spinal or foraminalstenosis. IMPRESSION: Status post anterior cervical fusion from C4 to C6. At C3/4 there is endplate marrow edema, disc ridge complex andsuperimposed central disc extrusion which in conjunction with facet anduncovertebral arthrosis results in moderate spinal canal narrowing,bilateral foraminal narrowing and ventral cord compression. No cordedema. us Betito Aguayo MD IMG MR XSPECIALTY Final Resu lt * (ABNORMAL) Lipid panel (12/07/2024 11:01 AM EDT) HDL 45 mg/dL [facility] Comment: Interpretation <40 mg/dL: Low HDL cholesterol (major risk factor for CHD) Greater than or equal to 60 mg/dL: High HDL cholesterol ( negative risk factor for CHD) HDL - cholesterol is affected by a number of factors, e.g. smoking, excerise, hormones, sex and age. CHOLESTEROL 209 0 - 240 mg/dL [facility] TRIGLYCERIDES 89 30 - 160 mg/dL [facility] LDL 146(H) 50 - 129 mg/dL [facility] Comment: LDL levels in terms of risk for coronary heart disease: <100 mg/dL: Optimal 100-129 mg/dL: Near or above optimal 130-159 mg/dL: Borderline high 160-189 mg/dL: High >190 mg/dL: Very High CARDIAC RISK RATIO 4.6 3.4 - 5.0 C [facility] Blood 12/07/2024 11:0 1 AM EDT 12/07/2024 11:14 AM EDT us Betito Aguayo MD LAB BLOOD ORDERABLES Final R esult [address] [address] * CT ABDOMEN/PELVIS WITH CONTRAST (11/07/2023 3:17 PM EDT) Anatomical Region Laterality Modality Abdomen, Pelvis Computed Tomogra phy 11/07/2023 4:34 PM EDT Impressions 11/07/2023 4:59 PM EDT Multiple loops of thickened small bowel in the left lower quadrant with mild upstream small bowel dilatation likely representing an infectious/inflammatory enteritis with partial obstruction. A clinically significant result was initiated on 11/07/2023 4:59 PM, Message ID [id number]. Narrative 11/07/2023 4:[address] ABDOMEN/PELVIS WITH CONTRAST Referring clinician's provided indication for this examination in Epic: * Epigastric pain TECHNIQUE: Multidetector-row CT of the abdomen and pelvis was performed after administration of intravenous contrast using tailored dose modulation techniques. Images were reconstructed in the axial, coronal, and sagittal planes. COMPARISON: None. FINDINGS: Lower Chest: No consolidation or pleural effusions. Partially visualized coronary artery calcifications. Liver: Small area of focal steatosis along the falciform ligament. Biliary: Normal gallbladder. No biliary ductal dilatation. Spleen: No splenomegaly or focal lesions. Pancreas: No masses or ductal dilatation. Adrenal Glands: No nodules. Kidneys/Ureters: Normal. No solid masses, stones, or hydronephrosis. Bowel: Normal appendix. Multiple loops of thickened small bowel in the left lower quadrant with mild upstream small bowel dilatation. Colonic diverticulosis without associated inflammatory changes. No colonic dilatation. Peritoneum/Retroperitoneum: Trace pelvic free fluid. No free air or focal fluid collections. Lymph Nodes: No lymphadenopathy. Pelvic Organs/Bladder: Right posterolateral bladder diverticulum. The bladder is relatively decompressed. No mass. Vessels: No abdominal aortic aneurysm. Overall moderate atherosclerosis. Bones/Soft Tissues: Degenerative changes. No aggressive appearing osseous lesions. Procedure Note Joss Pavon MD - 11/07/2023 CT ABDOMEN/PELVIS WITH CONTRAST Referring clinician's provided indication for this examination in Epic: *Epigastric pain TECHNIQUE: Multidetector-row CT of the abdomen and pelvis was performedafter administration of intravenous contrast using tailored dosemodulation techniques. Images were reconstructed in the axial, coronal,and sagittal planes. COMPARISON: None. FINDINGS: Lower Chest: No consolidation or pleural effusions. Partially visualizedcoronary artery calcifications. Liver: Small area of focal steatosis along the falciform ligament. Biliary: Normal gallbladder. No biliary ductal dilatation. Spleen: No splenomegaly or focal lesions. Pancreas: No masses or ductal dilatation. Adrenal Glands: No nodules. Kidneys/Ureters: Normal. No solid masses, stones, or hydronephrosis. Bowel: Normal appendix. Multiple loops of thickened small bowel in theleft lower quadrant with mild upstream small bowel dilatation. Colonicdiverticulosis without associated inflammatory changes. No colonicdilatation. Peritoneum/Retroperitoneum: Trace pelvic free fluid. No free air or focalfluid collections. Lymph Nodes: No lymphadenopathy. Pelvic Organs/Bladder: Right posterolateral bladder diverticulum. Thebladder is relatively decompressed. No mass. Vessels: No abdominal aortic aneurysm. Overall moderate atherosclerosis. Bones/Soft Tissues: Degenerative changes. No aggressive appearing osseouslesions. IMPRESSION: Multiple loops of thickened small bowel in the left lower quadrant withmild upstream small bowel dilatation likely representing aninfectious/inflammatory enteritis with partial obstruction. A clinically significant result was initiated on 11/07/2023 4:59 PM,Message ID [id number]. Karly Mitchell PA-C IMG CT ABD/PELVIS Fin al Result from Last 3 Months or Most Recently Relevant to Health Maintenance Insurance MEDICARE PART A & B [employer] CROSS MEDEX SUPPLEMENT MEDICARE PART A & B [employer] MEDEX SUPPLEMENT MEDICARE PART A & B MEDICARE PART A & B MEDICARE PART A & B [employer] SUPPLEMENT MEDICARE PART A & B MEDICARE PART A & B [employer] SUPPLEMENT MEDICARE PART A & B [facility] MEDEX SUPPLEMENT MEDICARE PART A & B [employer] MEDEX SUPPLEMENT [facility] [employer] Advance Directives For more information, please contact: [phone] (9AM - 5PM [facility], Saturday-Saturday) * Full Code (Latest Code Status on File) Date Activated Date Inactivated Comments 11/07/2023 7:06 PM Question Answer Comments Code Status Confirmed With: Patient Care Teams Industry Analyst Relationship Specialty Start Date End Date Bteito Aguayo MD [address] [place] [address] [address] [place] [address] [email or web address] PCP - General Internal Medicine 08/06/24 Additional Source Comments The information contained in this document represents components of the legal health record. It is not the complete legal health record.[facility]
--- OUTSIDE RECORDS SUMMARY | 2025-03-20 13:09 | XMS_ITS | Encounter Summary ---
Author Organization [facility] Address [facility] [address] [place] [address] Phone Care Team Providers Care Heat Treat Operator Name Role Phone Betito Aguayo MD Primary Care Provider [phone] Encounter Details Date Type Department Care Team (Late st Contact Info) Description 02/15/2025 Orders Only [facility] Medicine [address] [place] [address] [place] W[address] [address] [address] [email or web address] Primary osteoarthritis of both knees (Primary Dx) Social History Tobacco Use Types Packs/Day Years Used Date Smoking Tobacco: Former Cigarettes Q uit: 2018 Smokeless Tobacco: Never Alcohol Use Standard Drinks/Week Comments Yes 0 [...] your housing situation today? 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 [address] [email or web address] 12/13/2025 8:40 AM EDT Office Visit [facility] [place] Internal Medicine 14 [facility] [address] [place] [address] Betito Aguayo MD 14 [facility] [address] [place] [address] [email or web address] documented as of this encounter Results * XR KNEE 3 VIEW (BILATERAL) [...] clinician's provided indication for this examination in [facility]: Osteoarthritis COMPARISON: XR KNEE 4 OR MORE VIEWS (RIGHT) Procedure Note Matt Bar MD - 02/23/2025 XR KNEE 3 VIEW (BILATERAL) Referring clinician's provided indication for this examination in [facility]:Osteoarthritis COMPARISON: XR KNEE 4 OR MORE VIEWS (RIGHT) IMPRESSION: Bilateral knee osteoarthritis. There is at least mild medial compartmentspace narrowing bilaterally, slightly worse on the left and mild spurringin all compartments bilaterally. No evidence of acute, displaced fracture,dislocation, or significant joint effusion. Mild peripheral vascularcalcification. us Jefferson Bermudez MD IMG XR LOWER EXTREMITY Final Result documented in this encounter Visit Diagnoses Diagnosis Primary osteoarthritis of both knees- Primary Primary osteoarthritis of both knees documented in this encounter Additional Health Concerns Assessment Noted Time PHQ-2 Depression Total Score: 0 12/08/19 25 9:39 AM EDT documented as of this encounter Care Teams Heat Treat Operator Relationship Specialty Start Date End Date Betito Aguayo MD [address] [place] [address] [address] [place] [address] [email or web address] PCP - General Internal Medicine 08/06/24 documented as of this encounter Additional Source Comments The information contained in this document represents components of the legal health record. It is not the complete legal health record.[facility]
--- OUTSIDE RECORDS SUMMARY | 2025-03-20 13:09 | XMS_ITS | Encounter Summary ---
Author Organization [facility] Address [facility] [employer] [facility] [address] [place] [address] Phone Care Team Providers Care Linoleum Tile Floor Layer Name Role Phone Jessica Munroe NP Primary Care Provider Betito Aguayo MD Primary Care Provider Encounter Details Date Type Department Care Team (Latest Contact Info) Description 04/14/2024 Transcribe Orders [facility] [address]nd [place] [address] Calin Cordova MD 10 [address] [facility] 2 [place] [address] [email or web address] Incontinence of feces, unspecified fecal incontinence type (Primary Dx) Social History Tobacco Use Types Packs/Day Years Used Date Smoking Tobacco: Former Cigarettes Q uit: 2018 Smokeless Tobacco: Never Alcohol Use Standard Drinks/Week Comments Yes 0 (1 standard drink = 0.6 oz pure alcohol) oc beer or spirit on special occasions Education Answer Date Recorded Are you interested in more education? Not on bj e 09/21/2022 Are you concerned about learning? Not on file 09/21/2022 No 09/21/2022 No 09/21/2022 Food Answer Date Recorded Within the past 6 months we worried whether our food would run out before we got money to buy more. Never True 11/07/2023 Within the past 6 months the food we bought just didn't last and we didn't have enough money to get more. Never True Residential Stability Answer Date Recor ded What is your housing situation today? I have ronan pace 11/07/2023 How many times have you move d in the past 12 months? Zero (I did not move) 11/07/2023 Paying for Meds Answer Date Recorded Do you have trouble paying for medicines? No 11/07/2023 Paying Utility Bills Answer Date Record ed Do you have trouble paying your heating or elect ricity bill? No 11/07/2023 Transportation Answer Date Recorded Has the lack of transportati on kept you from medical appointments or from getting medications? No 11/07/2023 Digital Access Answer Date Recorded No 11/07/2023 Yes 11/07/2023 Do you have reliable internet access at home? Ye s 11/07/2023 Do you have a device (e.g., phone, tablet, computer) with a working camera? Yes 11/07/2023 Intimate Partner Violence Answer Date R ecorded Are you denied basic needs s uch as food, clothing, or medical care? No 11/07/2023 In the past 12 months have y ou been in a relationship with a person who hurts, threatens, or tries to control you? No 11/07/2023 Are you denied basic needs s uch as food, clothing, or medical care? No 11/07/2023 In the past 12 months have y ou been in a relationship with a person who hurts, threatens, or tries to control you? 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 [address] [email or web address] 12/13/2025 8:40 AM EDT Office Visit [facility] [place] Internal Medicine 14 [facility] [address] [place] [address] Betito Aguayo MD 14 [facility] [address] [place] [address] [email or web address] documented as of this encounter Results * C-Reactive Protein (04/14/2024 10:23 AM EST) [facility] C REACTIVE PROTEIN <3.0 0.0 - 4.0 mg/L [facility] Blood 04/14/2024 10:2 3 AM EST 04/14/2024 10:27 AM EST Calin Cordova MD LAB BLOOD ORDERABLES Final Result [facility] [address] [place] [address] * (ABNORMAL) Comprehensive metabolic panel (04/14/2024 10:23 AM EST) Pathologist [facility] SODIUM 141 133 - 146 mmol/L [facility] POTASSIUM 4.2 3.3 - 5.1 mmol/L [facility] CHLORIDE 105 96 - 108 mmol/L [facility] CO2 23 21 - 35 mmol/L [facility] BUN 12 6 - 19 mg/dL [facility] CREATININE 0.80 0.5 - 1.5 mg/dL [facility] GLUCOSE 104(H) 70 - 99 mg/dL [facility] ALBUMIN 4.5 3.9 - 4.8 g/dL [facility] TOTAL PROTEIN 7.2 6.5 - 8.0 g/dL [facility] CALCIUM 9.7 8.4 - 10.3 mg/dL [facility] ALKALINE PHOSPHATASE 57 39 - 117 U/L [facility] TOTAL BILIRUBIN 0.5 0.0 - 1.2 mg/dL [facility] AST 21 0 - 37 U/L [facility] ALT 14 0 - 40 U/L [facility] GLOBULIN 2.7 1 - 4.8 g/dL [facility] EGFR 95 >59 mL/min/1.7 3m2 [facility] Comment:Estimated glomerular filtration rate calculated using the CKD-EPI refit equation. ANION GAP 17 10 - 20 mmol/L [facility] Blood 04/14/2024 10:2 3 AM EST 04/14/2024 10:27 AM EST us Calin Cordova MD LAB BLOOD ORDERABLES Final Result [address] [address] * CBC (04/14/2024 10:23 AM EST) WBC 5.44 4.00 - 11.00 K/uL [facility] RBC 4.98 4.50 - 5.90 M/uL [facility] HGB 14.8 13.5 - 17.5 g/dL [facility] HCT 45.3 41.0 - 53.0 % [facility] PLT 219 150 - 450 K/uL [facility] MCV 91.0 80.0 - 100.0 [facility] MCH 29.7 27.0 - 31.0 pg [facility] MCHC 32.7 32.0 - 36.0 g/dL [facility] RDW 14.5 11.5 - 14.5 % [facility] MPV 10.6 8.4 - 12.0 [facility] NRBC 0.00 0.00 /100 WBCs [facility] ABSOLUTE NRBC 0.00 0.00 K/uL [facility] Blood 04/14/2024 10:2 3 AM EST 04/14/2024 10:27 AM EST us Calin Cordova MD LAB BLOOD ORDERABLES Final Result [address] [address] documented in this encounter Visit Diagnoses Diagnosis Incontinence of feces, unspecified fecal incontinence type- Primary documented in this encounter Care Teams Linoleum Tile Floor Layer Relationship Specialty Start Date End Date Jessica Munroe NP [address] [place] [address] PCP - General Nurse Practitioner 06/28/23 08/05/24 Betito Aguayo MD [address] [place] [address] [email or web address] PCP - General Internal Medicine 08/06/24 documented as of this encounter Additional Source Comments The information contained in this document represents components of the legal health record. It is not the complete legal health record.[facility]
--- OUTSIDE RECORDS SUMMARY | 2025-03-20 13:09 | XMS_ITS | Encounter Summary ---
Author Organization [facility] Address [address] [place] [address] Phone Care Team Providers Care Wire Winder Name Role Phone Jessica Munroe NP Primary Care Provider [phone] Betito Aguayo MD Primary Care Provider [phone] Encounter Details Date Type Department Care Team (Late st Contact Info) Description 11/07/2023 Procedure Pass [facility], Ct Scan - [address] [address] Social History Tobacco Use Types Packs/Day Years [...] housing situation today? 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 Wish to be (Past 1 Month) No 11/07/2023 8:14 PM EDT Becca Verma RN 2. Non-Specific Active Suici hoa Thoughts (Past 1 Month) No 11/07/2023 8:14 PM EDT Barrington Verma, RN 6. Suicidal Behavior (Lifetime) No 4 8:14 PM EDT Maki Verma RN documented as of this encounter Plan of Treatment Upcoming Encounters Date Type Department Care Team (Late st Contact Info) Description 03/29/2025 11:00 AM EST Telemedicine - audio only [facility] Sports Medicine [address] [place] [address] [place] [address] Jefferson Bermudez MD 4 [facility] Orthopedics & Sports Medicine, [facility] [address] [email or web address] 12/13/2025 8:40 AM EDT Office Visit [facility] Internal Medicine 14 [facility] [address] [place] [address] Betito Aguayo MD [address] [address] documented as of this encounter Visit Diagnoses Not on filedocumented in this encounter Care Teams Wire Winder Relationship Specialty Start Date End Date Jessica Munroe NP [address] [place] [address] PCP - General Nurse Practitioner 06/28/23 08/05/24 Betito Aguayo MD [address] [address] PCP - General Internal Medicine 08/06/24 documented as of this encounter Additional Source Comments The information contained in this document represents components of the legal health record. It is not the complete legal health record.[facility]
--- OUTSIDE RECORDS SUMMARY | 2025-03-20 13:09 | XMS_ITS | Encounter Summary ---
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 [address] [email or web address] 12/13/2025 8:40 AM EDT Office Visit [facility] [place] Internal Medicine 14 [facility] [address] [place] [address] Betito Aguayo MD 14 [facility] [address] [place] [address] [email or web address] documented as of this encounter Visit Diagnoses Not on filedocumented in this encounter Additional Health Concerns Assessment Noted Time PHQ-2 Depression Total Score: 0 12/08/19 9:39 AM EDT documented as of this encounter Care Teams Tuck Pointer Relationship Specialty Start Date End Date Betito Aguayo MD [address] [address] [email or web address] PCP - General Internal Medicine 08/06/24 documented as of this encounter Additional Source Comments The information contained in this document represents components of the legal health record. It is not the complete legal health record.[facility]
--- OUTSIDE RECORDS SUMMARY | 2025-03-20 13:09 | XMS_ITS | Encounter Summary ---
Author Organization [facility] Address 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 [address] [email or web address] 12/13/2025 8:40 AM EDT Office Visit [facility] Internal Medicine [address] [address] Betito Aguayo MD [address] [address] [email or web address] documented as of this encounter Visit Diagnoses Not on filedocumented in this encounter Additional Health Concerns Assessment Noted Time PHQ-2 Depression Total Score: 0 12/08/19 9:39 AM EDT documented as of this encounter Care Teams Dairy Bacteriologist Relationship Specialty Start Date End Date Betito Aguayo MD [address] [address] [email or web address] PCP - General Internal Medicine 08/06/24 documented as of this encounter Additional Source Comments The information contained in this document represents components of the legal health record. It is not the complete legal health record.[facility]
[2025-03-20 13:38] VITALS: BP 125/65; PULSE 58; RESP 16; TEMP 36.9; O2SAT 97
[2025-03-20] MEDS: Diphth,Pertus(ACell),Tet Adult 0.5 ML SYRINGE IM (13:42)
[2025-03-20 14:50] VITALS: BP 125/65; PULSE 58; RESP 16; TEMP 36.9; O2SAT 97
== END 2025-03-20 14:51 | disposition home or self-care (01) ==
PROVIDERS: Emergency Provider Emergency Medicine Emergency Medical Services; PCP Internal Medicine
DX: S09.90XA Unspecified injury of head, initial encounter (principal); S01.01XA Laceration without foreign body of scalp, initial encounter; W22.8XXA Striking against or struck by other objects, initial encounter; Y93.89 Activity, other specified; Y92.9 Unspecified place or not applicable; Y99.9 Unspecified external cause status
CPT/HCPCS: 12002; 70450; 72125; 90471; 90715; 99284

== ENCOUNTER 2025-03-28 07:47 | Emergency (ER) | payer MEDICARE, SELFPAY ==
[2025-03-28 07:51] VITALS: BP 132/75; PULSE 58; RESP 16; TEMP 36.1; O2SAT 96; BMI 27.8
--- NOTE | 2025-03-28 07:59 | ED_ITS ---
HPI - Skin/Abscess/Foreign Bdy General Chief complaint: Skin/Abscess/Foreign Body Stated complaint: staple removal Time Seen by Provider: 03/28/25 07:58 Source: patient and RN notes reviewed Mode of arrival: ambulatory Limitations: no limitations History of Present Illness ED Provider: Abena Lizarraga PA-C HPI narrative: This is a 69-year-old male who presents emergency department for staple removal. Patient had a laceration sustained in his left side of his head after a ladder fell on top of him 7 days ago. He had 3 ruchi placed. He tolerated the ruchi well without any complications or concerns. He took the antibiotics as directed. No fevers, chills, headache, drainage. No other complaints or concerns at this time. MD complaint: laceration Relieving factors: none Exacerbating factors: none Context: none Associated symptoms: denies other symptoms Treatments prior to arrival: none Related Data Previous Rx's ?Medication ?Instructions ?Recorded amoxicillin 875 mg-potassium 1 tab PO BID 5 days #10 t abs 03/20/25 clavulanate 125 mg tablet Allergies Allergy/AdvReac Type Severity Reaction Status Date / Time levofloxacin (From Levaquin) Allergy Intermediate Angioedema Verified 03/28/25 07:54 [facility] Social History Social History Advance Directives: No Advance Directives Information Provided: Yes Physical Exam Exam: Exam: General: Awake, alert, and oriented X3. No acute distress. HEENT: Normal inspection CVS: Normal heart rate and rhythm. Pulses normal. Respiratory: No respiratory distress Skin: Left occiput with [address] overlying a well-healed laceration, no surrounding erythema or warmth, no fluctuance or drainage. No evidence of wound dehiscence. Nontender. Extremities: Normal to inspection Neuro: Oriented X 3. No motor deficit. No sensory deficit. Vital Signs: Vital Signs: Last Vital Signs Temp 96.9 F 03/28/25 08:12 Pulse 58 03/28/25 08:12 Resp 16 03/28/25 08:12 BP 132/75 03/28/25 08:12 Pulse Ox 96 03/28/25 08:12 O2 Del Method Room Air 03/28/25 08:12 BMI result Body Mass Index 27.8 Medical Decision Making Medical Decision Making MDM Narrative: This is a 69-year-old male who presents emergency department for staple removal. On arrival, vital signs within normal limits, he is speaking full sentences under no acute distress. Ruchi were successfully removed, patient tolerated procedure well. No evidence of wound dehiscence or cellulitis. Given wound care instructions. Patient stable for discharge. Differential Diagnosis Differential Diagnoses: The differential diagnosis associated with the presentation includes Cellulitis, wound dehiscence, wound check, staple removal Discharge Plan Discharge Clinical Impression: Removal of ruchi Patient Disposition: Home, Self-Care Instructions: Staple Care (ED) Additional Instructions: You were seen in the emergency department for a staple removal. We removed 3 ruchi from your scalp today. Your wound is well healed, you do have some scabbing overlying this area therefore do not pick at this wound. You can gently rinse with warm soapy water as needed. Watch for any signs of infection including but not limited to increased redness, swelling, fevers, chills, increased pain, if any of these occur, please return for re-evaluation. Prescriptions: No Action amoxicillin-pot clavulanate 875-125 mg tablet 1 tab PO BID 5 Days Qty: 10 0RF Interventions: ED Discharge Assessment Last Done: 03/28/25 08:12 Discharge Date/Time: 03/28/25 08:13 Print Language: Belarusian
--- OUTSIDE RECORDS SUMMARY | 2025-03-28 08:06 | XMS_ITS | Encounter Summary ---
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 [place], [place] [id number] [email or web address] 12/13/2025 8:40 AM EDT Office Visit [facility] [place] [facility] 14 [facility] [address] [place] [address] Betito Aguayo MD 14 [facility] [address] [place] [address] [email or web address] documented as of this encounter Procedures Procedure Name Priority Date/Time Associated Diagnosis Comments OUTSIDE IMAGING Routine 03/20/2025 4:57 PM EDT OUTSIDE IMAGING Routine 03/20/2025 4:56 PM EDT documented in this encounter Results * Outside Imaging Report Only (03/20/2025 4:57 PM EDT) Historical Provider MD RIVERO XR CHEST Edited Re sult - Final * Outside Imaging Report Only (03/20/2025 4:56 PM EDT) us Historical Provider MD RIVERO XR CHEST Edited Re sult - Final documented in this encounter Visit Diagnoses Not on filedocumented in this encounter Additional Health Concerns Assessment Noted Time PHQ-2 Depression Total Score: 0 12/08/19 9:39 AM EDT documented as of this encounter Care Teams Edi Developer Relationship Specialty Start Date End Date Betito Aguayo MD 14 [facility] [address] [place] [address] [email or web address] PCP - General Internal Medicine 08/06/24 documented as of this encounter Additional Source Comments The information contained in this document represents components of the legal health record. It is not the complete legal health record.[facility]
--- OUTSIDE RECORDS SUMMARY | 2025-03-28 08:06 | XMS_ITS | Clinical Summary ---
Author Organization [facility] Address [facility] [employer] [address] [address] Phone Care Team Providers Care Sas Developer Name Role Phone Betito Aguayo MD Primary Care Provider [phone] Allergies Active Allergy Reactions Criticality Noted Date [...] Encounters Date Type Department Care Team Description 03/22/2025 Orders Only [facility] Family Medicine [address] [place] [address] Provider, MD Agus 03/11/2025 Telephone [facility] Internal Medicine [address] [address] Betito Aguayo MD Referral 02/25/2025 3:30 PM EDT Office Visit [facility] Orthopedics & Sports Medicine [address] [place] [address] [place] [address] Jefferson Bermudez MD Primary osteoarthritis of both knees (Primary Dx) 02/23/2025 8:30 AM EDT - 02/23/2025 11:59 PM EDT Hospital Encounter [facility], X-Ray - [address] [place] [address] Jefferson Bermudez MD Discharge Disposition: Home or Self Care 02/15/2025 Orders Only [facility] Sports Medicine [address] [place] [address] Verona Wilder MA Primary osteoarthritis of both knees (Primary Dx) 01/05/2025 Telephone [facility] [address] [place] [address] Kylie Hammonds MSN Results (Virtual clinical support: MRI results) 01/02/2025 3:48 PM EDT - 01/02/2025 11:59 PM EDT Hospital Encounter [address] [address] Betito Aguayo MD Discharge Disposition: Home or Self Care 12/07/2024 Procedure Pass [address] [address] from Last 3 Months Immunizations Immunization Administration [...] 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 [address] [email or web address] 12/13/2025 8:40 AM EDT Office Visit [facility] Internal Medicine [address] [place] [address] Betito Aguayo MD [address] [address] [email or web address] Health Maintenance Due Date Last Done Comments [...] OUTSIDE IMAGING Routine 03/20/2025 4:56 PM EDT XR KNEE 3 VIEW (BILATERAL) Routine 02/23/2025 8:56 AM EDT Primary osteoarthritis of both knees MRI CERVICAL SPINE (NEURO) FOCUS WITHOUT CONTRAST Routine 01/02/2025 4:47 PM EDT Cervical radiculopathy LIPID PANEL Routine 12/07/2024 11:01 AM EDT Mixed hyperlipidemia CT ABDOMEN/PELVIS WITH CONTRAST Routine 11/07/2023 3:17 PM EDT from Last 3 Months or Most Recently Relevant to Health Maintenance Results * Outside Imaging Report Only (03/20/2025 4:57 PM EDT) us Historical Provider MD RIVERO XR CHEST Edited Re sult - Final * Outside Imaging Report Only (03/20/2025 4:56 PM EDT) Historical Provider MD RVIERO XR CHEST Edited Re sult - Final * XR KNEE 3 VIEW (BILATERAL) (02/23/2025 [...] clinician's provided indication for this examination in [facility]: Osteoarthritis COMPARISON: XR KNEE 4 OR MORE VIEWS (RIGHT) Procedure Note Matt Bar MD - 02/23/2025 XR KNEE 3 VIEW (BILATERAL) Referring clinician's provided indication for this examination in [facility]:Osteoarthritis COMPARISON: XR KNEE 4 OR MORE VIEWS (RIGHT) IMPRESSION: Bilateral knee osteoarthritis. There is at least mild medial compartmentspace narrowing bilaterally, slightly worse on the left and mild spurringin all compartments bilaterally. No evidence of acute, displaced fracture,dislocation, or significant joint effusion. Mild peripheral vascularcalcification. Jefferson RIVERO XR LOWER EXTREMITY Final Result * MRI [...] clinician's provided indication for this examination in [facility]: * Cervical radiculopathy, prior C-spine surgery; recurrent [...] clinician's provided indication for this examination in [facility]: *Cervical radiculopathy, prior C-spine surgery; recurrent primarily [...] (12/07/2024 11:01 AM EDT) HDL 45 mg/dL [facility] Comment: Interpretation <40 mg/dL: Low HDL cholesterol (major risk factor for CHD) Greater than or equal to 60 mg/dL: High HDL cholesterol ( negative risk factor for CHD) HDL - cholesterol is affected by a number of factors, e.g. smoking, excerise, hormones, sex and age. CHOLESTEROL 209 0 - 240 mg/dL [facility] TRIGLYCERIDES 89 30 - 160 mg/dL [facility] LDL 146(H) 50 - 129 mg/dL [facility] Comment: LDL levels in terms of risk for coronary heart disease: <100 mg/dL: Optimal 100-129 mg/dL: Near or above optimal 130-159 mg/dL: Borderline high 160-189 mg/dL: High >190 mg/dL: Very High CARDIAC RISK RATIO 4.6 3.4 - 5.0 [facility] Blood 12/07/2024 11:0 1 AM EDT 12/07/2024 11:14 AM EDT us Betito Aguayo MD LAB BLOOD BKR ORDERABLES Fin al Result [facility] [address] [place] [address] * CT ABDOMEN/PELVIS WITH CONTRAST (11/07/2023 3:17 [...] initiated on 11/07/2023 4:59 PM, Message ID [id number]. Narrative 11/07/2023 4:[address] ABDOMEN/PELVIS [...] was initiated on 11/07/2023 4:59 PM,Message ID [id number]. Karly Mitchell PA-C IMG CT ABD/PELVIS Fin al Result from Last 3 Months or Most Recently Relevant to Health Maintenance Insurance MEDICARE PART A & B [facility] MEDEX SUPPLEMENT MEDICARE PART A & B [employer] MEDEX SUPPLEMENT MEDICARE PART A & B MEDICARE PART A & B MEDICARE PART A & B Member Subscriber Plan / Payer ( fective 2017-Present) Name:Gualberto Downingchapo Member ID:[id number] Relation to Subscriber:Self Name:Inderjit Downing Subscriber ID:[id number] Payer ID:[id number] Group ID:Not on file Type:Medicare Address: giddy [address] MEDEX SUPPLEMENT MEDICARE PART A & B MEDICARE PART A & B [facility] MEDEX SUPPLEMENT MEDICARE PART A & B [employer] MEDEX SUPPLEMENT MEDICARE PART A & B [facility] MEDEX SUPPLEMENT [facility] INS[facility]ANCE [facility] Advance Directives For more information, please contact: [phone] (9AM - 5PM Мар[facility], Saturday-Saturday) * Full Code (Latest Code Status on File) Date Activated Date Inactivated Comments 11/07/2023 7:06 PM Question Answer Comments Code Status Confirmed With: Patient Care Teams Sas Developer Relationship Specialty Start Date End Date Betito Aguayo MD [address] [place] [address] [address] [place] [address] [email or web address] PCP - General Internal Medicine 08/06/24 Additional Source Comments The information contained in this document represents components of the legal health record. It is not the complete legal health record.[facility]
--- OUTSIDE RECORDS SUMMARY | 2025-03-28 08:06 | XMS_ITS | Encounter Summary ---
Author Organization [facility] Address [facility] [employer] [facility] [address] [place] [address] Phone Care Team Providers Care Steam Drier Operator Name Role Phone Jessica Munroe NP Primary Care Provider [phone] Betito Aguayo MD Primary Care Provider [phone] Encounter Details Date Type Department Care Team (Latest Contact Info) Description 04/14/2024 Transcribe Orders [facility] [address]nd [place] [address] Calin Cordova MD 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 Not on file documented as of this encounter Plan of Treatment Upcoming Encounters Date Type Department Care Team (Late st Contact Info) Description 03/29/2025 11:00 AM EST Telemedicine - audio only [facility] Sports Medicine [address] [place] [address] [place] [address] Jefferson Bermudez MD [address] [place] [address] Orthopedics & Sports Medicine, [place] [address] [email or web address] 12/13/2025 8:40 AM EDT Office Visit [facility] [place] [facility] 14 [facility] [address] [place] [address] Betito Aguayo MD 14 [facility] [address] [place] [address] documented as of this encounter Results * C-Reactive Protein (04/14/2024 10:23 AM EST) Pathologist [facility] C REACTIVE PROTEIN <3.0 0.0 - 4.0 mg/L [facility] Blood 04/14/2024 10:2 3 AM EST 04/14/2024 10:27 AM EST Calin Cordova MD LAB BLOOD BKR ORDERABLES F inal Result [facility] [address] [place] [address] * (ABNORMAL) Comprehensive metabolic panel (04/14/2024 10:23 AM EST) [facility] SODIUM 141 133 - 146 mmol/L [facility] POTASSIUM 4.2 3.3 - 5.1 mmol/L [facility] CHLORIDE 105 96 - 108 mmol/L [facility] CO2 23 21 - 35 mmol/L [facility] BUN 12 6 - 19 mg/dL [facility] CREATININE 0.80 0.5 - 1.5 mg/dL [facility] GLUCOSE 104(H) 70 - 99 mg/dL [facility] ALBUMIN 4.5 3.9 - 4.8 g/dL [facility] TOTAL PROTEIN 7.2 6.5 - 8.0 g/dL [facility] CALCIUM 9.7 8.4 - 10.3 mg/dL [facility] ALKALINE PHOSPHATASE 57 39 - 117 U/L [facility] TOTAL BILIRUBIN 0.5 0.0 - 1.2 mg/dL [facility] AST 21 0 - 37 U/L [facility] ALT 14 0 - 40 U/L [facility] GLOBULIN 2.7 1 - 4.8 g/dL [facility] EGFR 95 >59 mL/min/1.7 3m2 [facility] Comment:Estimated glomerular filtration rate calculated using the CKD-EPI refit equation. ANION GAP 17 10 - 20 mmol/L [facility] Blood 04/14/2024 10:2 3 AM EST 04/14/2024 10:27 AM EST Calin Cordova MD LAB BLOOD BKR ORDERABLES F inal Result Performing Organization Address City/[facility]/ZIP Co de Phone Number [address] [address] * CBC (04/14/2024 10:23 AM EST) WBC 5.44 4.00 - 11.00 K/uL [facility] RBC 4.98 4.50 - 5.90 M/uL [facility] HGB 14.8 13.5 - 17.5 g/dL [facility] HCT 45.3 41.0 - 53.0 % [facility] PLT 219 150 - 450 K/uL [facility] MCV 91.0 80.0 - 100.0 fL [facility] MCH 29.7 27.0 - 31.0 pg [facility] MCHC 32.7 32.0 - 36.0 g/dL [facility] RDW 14.5 11.5 - 14.5 % [facility] MPV 10.6 8.4 - 12.0 fL [facility] NRBC 0.00 0.00 /100 WBCs [facility] ABSOLUTE NRBC 0.00 0.00 K/uL [facility] Blood 04/14/2024 10:2 3 AM EST 04/14/2024 10:27 AM EST Calin Cordova MD LAB BLOOD BKR ORDERABLES F inal Result [address] [place] [address] documented in this encounter Visit Diagnoses Diagnosis Incontinence of feces, unspecified fecal incontinence type- Primary documented in this encounter Care Teams Steam Drier Operator Relationship Specialty Start Date End Date Jessica Munroe NP [address] [place] [address] PCP - General Nurse Practitioner 06/28/23 08/05/24 Betito Aguayo MD [address] [place] [address] [address] [place] [address] [email or web address] PCP - General Internal Medicine 08/06/24 documented as of this encounter Additional Source Comments The information contained in this document represents components of the legal health record. It is not the complete legal health record.[facility]
--- OUTSIDE RECORDS SUMMARY | 2025-03-28 08:06 | XMS_ITS | Encounter Summary ---
Author Organization [facility] Address [address] [facility] [address] [place] [address] Phone Care Team Providers Care Lead Vulcanizing Operator Name Role Phone Betito Aguayo MD Primary Care Provider [phone] Encounter Details Date Type Department Care Team ([facility] st Contact Info) Description 12/07/2024 Transcribe Orders [facility] Phleb Kindra 10 [facility] 2nd [place] [address] Betito Aguayo MD [address] [place] [address] [address] [place] [address] [email or web address] Social History Tobacco Use Types Packs/Day Years [...] 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 [address] [email or web address] 12/13/2025 8:40 AM EDT Office Visit [facility] Internal Medicine [address] [address] Betito Aguayo MD [address] [address] [email or web address] documented as of this encounter Visit Diagnoses Not on filedocumented in this encounter Additional Health Concerns Assessment Noted Time PHQ-2 Depression Total Score: 0 12/08/19 9:39 AM EDT documented as of this encounter Care Teams Lead Vulcanizing Operator Relationship Specialty Start Date End Date Betito Aguayo MD [address] [address] [email or web address] PCP - General Internal Medicine 08/06/24 documented as of this encounter Additional Source Comments The information contained in this document represents components of the legal health record. It is not the complete legal health record.[facility]
--- OUTSIDE RECORDS SUMMARY | 2025-03-28 08:06 | XMS_ITS | Encounter Summary ---
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 [address] [email or web address] 12/13/2025 8:40 AM EDT Office Visit [facility] [place] [facility] 14 [facility] [address] [place] [address] Betito Aguayo MD 14 [facility] [address] [place] [address] [email or web address] documented as of this encounter Visit Diagnoses Not on filedocumented in this encounter Additional Health Concerns Assessment Noted Time PHQ-2 Depression Total Score: 0 12/08/19 9:39 AM EDT documented as of this encounter Care Teams Play Therapist Relationship Specialty Start Date End Date Betito Aguayo MD [address] [address] [email or web address] PCP - General Internal Medicine 08/06/24 documented as of this encounter Additional Source Comments The information contained in this document represents components of the legal health record. It is not the complete legal health record.[facility]
--- OUTSIDE RECORDS SUMMARY | 2025-03-28 08:07 | XMS_ITS | Encounter Summary ---
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 [address] [email or web address] 12/13/2025 8:40 AM EDT Office Visit [facility] Internal Medicine 14 [facility] [address] [place] [address] Betito Aguayo MD [address] [address] documented as of this encounter Visit Diagnoses Not on filedocumented in this encounter Care Teams Printing Machine Operator Tape Rules Relationship Specialty Start Date End Date Jessica Munroe NP [address] [place] [address] PCP - General Nurse Practitioner 06/28/23 08/05/24 Betito Aguayo MD [address] [address] PCP - General Internal Medicine 08/06/24 documented as of this encounter Additional Source Comments The information contained in this document represents components of the legal health record. It is not the complete legal health record.[facility]
[2025-03-28 08:12] VITALS: BP 132/75; PULSE 58; RESP 16; TEMP 36.1; O2SAT 96
== END 2025-03-28 08:13 | disposition home or self-care (01) ==
PROVIDERS: Emergency Provider Emergency Medicine Emergency Medical Services; PCP Internal Medicine
DX: Z48.02 Encounter for removal of sutures (principal)
CPT/HCPCS: 99282